=== PATIENT | male | born 2000 | race African-American/Black ===

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

== ENCOUNTER 2018-01-04 14:12 | Emergency (ER) | payer OTHER ==
[~2018-01-04 14:12] MED LIST: ALBUAER3 INH
[2018-01-04 14:40] VITALS: BP 139/66; PULSE 79; RESP 16; TEMP 98.1; O2SAT 99
--- NOTE | 2018-01-04 18:10 | PD ---
HPI Chief Complaint: Skin Problem Time Seen by Provider: 18:06 Travel History International Travel<30 days: No Contact w/Intl Traveler<30days: No Traveled to known affect area: No History of Present Illness HPI Patient comes to the emergency department complaining of a painful bump in his right medial thigh that began 3 days ago. Patient describes pain as a burning pressure-like pain over the area without radiation. Pain is worse with walking and palpation. Denies any fevers. Denies anything making it better. Patient has been trying to "clean more thorough" and not walking as much to alleviate pain. PFSH Past Medical History Asthma: Yes Diminished Hearing: Yes Integumentary: Yes (ECZEMA ) Past Surgical History Other Surgery: Yes (HERNIA SURGERY A BABY ) Social History Alcohol Use: No Tobacco Use: No Substance Use: No Allergies-Medications (Allergen,Severity, Reaction): Coded Allergies: shellfish derived (Verified Allergy, Severe, 01/04/18) TONGUE SWELLING Reported Meds & Prescriptions Reported Meds & Active Scripts Active Keflex (Cephalexin) 500 Mg Cap 500 Mg PO Q8H Bactrim DS (Sulfamethoxazole-Trimethoprim) 800-160 Mg Tab 1 Tab PO BID Reported Proair Hfa 8.5 GM Inh (Albuterol Sulfate) 90 Mcg/Act Aer 2 Puff INH Q4-6H PRN 108 mcg/actuation Review of Systems Except as stated in HPI: all other systems reviewed are Neg Physical Exam Narrative GENERAL: Well-developed, overly nourished, in no acute distress, and non-ill appearing. SKIN: Focused skin assessment warm and dry. Patient has a small fluctuant abscess noted in the right medial thigh distal to the groin. It is febrile without crepitus or drainage. HEAD: Atraumatic. Normocephalic. EYES: Pupils equal and round. EOMI. No scleral icterus. No injection or drainage. ENT: No nasal bleeding or discharge. Mucous membranes pink and moist. NECK: Trachea midline. Supple. No nuclear rigidity. RESPIRATORY: No accessory muscle use. No respiratory distress. MUSCULOSKELETAL: No obvious deformities. No clubbing. No cyanosis. No edema. Full range of motion. NEUROLOGICAL: Awake and alert. No obvious cranial nerve deficits. Motor grossly within normal limits. Normal speech. PSYCHIATRIC: Appropriate mood and affect; insight and judgment normal. Data Data Last Documented VS Vital Signs Date Time Temp Pulse Resp B/P (MAP) Pulse Ox O2 Delivery O2 Flow Rate FiO2 01/04/18 14:40 98.1 79 16 139/66 (90) 99 Orders Orders Wound Culture And Gram Stain (01/04/18 18:07) Tetanus/Diphtheria Tox Adult (Tetanus/Di (01/04/18 18:15) Lidocai-Epi 1%-1:100,000 Inj (Xylocaine- (01/04/18 18:15) Ed Discharge Order (01/04/18 18:30) MDM Medical Decision Making Medical Screen Exam Complete: Yes Emergency Medical Condition: Yes Differential Diagnosis Abscess, cellulitis, folliculitis, gangrene Narrative Course Patient was given option of just trying antibiotics versus having an abscess can open. Patient is just wanting to have it cut open. The patient has no evidence of significant cellulitis. There is no evidence of necrotizing fasciitis/ [place] at this time. The patient will be discharged on antibiotics. The patient was given signs and symptoms warnings for worsening infection, such as spreading of redness, increasing pain, and/or swelling, associated heat, or fever or feels worse, and instructed to return immediately if these signs or symptoms worsen. The patient is to return in 2 days for recheck. Sooner if worsens or as needed. The patient agrees with plan. Patient in no obvious distress upon re-evaluation. Patient reports symptoms have improved status post I&D. Patient was asked if they wanted to speak to my attending, which the patient did not wish to do at this time. Any questions/ concerns in reference to patient diagnosis/condition discussed and clarified prior to patient's discharge. Reinforced sheer importance of close follow up with patient's primary physician or primary care clinic. Instructed patient to return to ED immediately, if symptoms return/worsen. Patient showed understanding of above instructions. Further instructions and recommendations were detailed in discharge paperwork. Patient ambulated without difficulty out of ED at discharge. Procedures Procedure Narrative INCISION AND DRAINAGE OF ABSCESS: Verbal consent was obtained. The area was prepped. A subcutaneous wheal of 1% Xylocaine with epi with a total number 2 mL was used to anesthetize the area. The area was properly anesthetized. A number 11 scalpel was used to make an proximal 1-cm incision across the area of the abscess. The abscess was drained. Abscess was too small for packing. Sterile dressing applied by nurse. Patient tolerated procedure well. Patient advised to return here in 2 days to have wound rechecked. Patient verbalized understanding. Patient reports improvement of symptoms status post I&D. Diagnosis Primary Impression: Abscess Referrals: [facility] Patient Instructions: Abscess (GEN), Abscess Incision and Drainage (DC), General Instructions Additional Instructions: Follow-up with your primary care physician or return here in 2 days for recheck. Take all medication as prescribed. Apply warm compresses to affected area multiple times daily to facilitate drainage. Keep area dry and clean as possible using soap and water. Return to the emergency department if symptoms get worse. Med/Other Pt SpecificInfo: Prescription(s) given Scripts Cephalexin (Keflex) 500 Mg Cap 500 MG PO Q8H for Infection, #30 CAP 0 Refills Prov: Kwame Gandara MD 01/04/18 Sulfamethoxazole-Trimethoprim (Bactrim DS) 800-160 Mg Tab 1 TAB PO BID for Infection, #20 TAB 0 Refills Prov: Kwame Gandara MD 01/04/18 Disposition: 01 DISCHARGE HOME Condition: Stable Caleb Quinn Jan 04, 2018 18:10
[2018-01-04] MEDS ORDERED: TETANUS/DIPHTHERIA TOXOID ADULT 0.5 ML VIAL IM ONE (18:15)
[2018-01-04] MEDS ORDERED: LIDOCAINE 1%/EPINEPHrine 1:100,000 SOLN 20 ML VIAL INFIL ONE (18:15)
[2018-01-04] MEDS ORDERED: BACT800T5 PO (18:25)
[2018-01-04] MEDS ORDERED: CEPH-460 PO (18:25)
== END 2018-01-04 19:06 | disposition home or self-care (01) ==
LOC: NEPK 14:12
DX: L02.415 Cutaneous abscess of right lower limb (principal); B95.0 Streptococcus, group A, as the cause of diseases classified elsewhere; J45.909 Unspecified asthma, uncomplicated; Z23 Encounter for immunization
CPT/HCPCS: 10060; 86403; 87070; 87205; 90471; 90714